=== PATIENT | female | born 1950 | race Caucasian/White ===

== ENCOUNTER 2017-03-28 11:26 | Emergency (ER) | payer OTHER ==
[2017-03-28 12:35] VITALS: BP 138/97
== END 2017-03-28 13:34 | disposition left against medical advice (07) ==
LOC: ED 11:26
DX: R07.89 Other chest pain (principal); L50.0 Allergic urticaria; I45.10 Unspecified right bundle-branch block; I10 Essential (primary) hypertension
CPT/HCPCS: 80307; 83880